=== PATIENT | female | born 1955 | race Caucasian/White ===

== ENCOUNTER → 2024-02-24 12:38 | Outpatient (REF) | payer OTHER, MEDICARE, SELFPAY | LOC: WDC 12:38 | PROVIDERS: ATTENDING PHYSICIAN Family Medicine | DX: Z12.31 Encounter for screening mammogram for malignant neoplasm of breast (principal) | CPT/HCPCS: 77063; 77067 ==

== ENCOUNTER → 2024-04-23 11:25 | Outpatient (REF) | payer OTHER, MEDICARE, SELFPAY | LOC: HWRAD 11:25 | PROVIDERS: ATTENDING PHYSICIAN Family Medicine | DX: R91.8 Other nonspecific abnormal finding of lung field (principal) | CPT/HCPCS: 71250 ==

== ENCOUNTER → 2025-04-04 10:53 | Outpatient (REF) | payer MEDICARE, OTHER, SELFPAY | LOC: WDC 10:53 | PROVIDERS: ATTENDING PHYSICIAN Family Medicine | DX: Z12.31 Encounter for screening mammogram for malignant neoplasm of breast (principal) | CPT/HCPCS: 77063; 77067 ==

== ENCOUNTER → 2025-05-03 11:07 | Outpatient (REF) | payer MEDICARE, OTHER, SELFPAY | LOC: HWRAD 11:07 | PROVIDERS: ATTENDING PHYSICIAN Family Medicine | DX: F17.210 Nicotine dependence, cigarettes, uncomplicated (principal) | CPT/HCPCS: 71271 ==

== ENCOUNTER → 2025-06-03 10:36 | Outpatient (REF) | payer MEDICARE, OTHER, SELFPAY | LOC: RAD 10:36 | PROVIDERS: ATTENDING PHYSICIAN Family Medicine | DX: M85.80 Other specified disorders of bone density and structure, unspecified site (principal); M81.0 Age-related osteoporosis without current pathological fracture | CPT/HCPCS: 77080 ==

== ENCOUNTER → 2025-06-11 10:33 | Outpatient (REF) | payer MEDICARE, OTHER, SELFPAY | LOC: HWRAD 10:33 | PROVIDERS: ATTENDING PHYSICIAN Internal Medicine Critical Care Medicine; FAMILY PHYSICIAN Family Medicine | DX: R91.1 Solitary pulmonary nodule (principal) | CPT/HCPCS: 71250 ==

== ENCOUNTER → 2025-06-24 12:32 | Outpatient (REF) | payer MEDICARE, OTHER, SELFPAY | LOC: HWRCS 12:32 | PROVIDERS: ATTENDING PHYSICIAN Nuclear Medicine Nuclear Cardiology; FAMILY PHYSICIAN Family Medicine | DX: R06.09 Other forms of dyspnea (principal); F17.200 Nicotine dependence, unspecified, uncomplicated; I25.10 Atherosclerotic heart disease of native coronary artery without angina pectoris; R73.01 Impaired fasting glucose; I34.1 Nonrheumatic mitral (valve) prolapse; I34.0 Nonrheumatic mitral (valve) insufficiency | CPT/HCPCS: 78452; 93017; A9500; J2785 ==

== ENCOUNTER → 2025-07-02 09:04 | Outpatient (REF) | payer MEDICARE, OTHER, SELFPAY | LOC: HWRCS 09:04 | PROVIDERS: ATTENDING PHYSICIAN Nuclear Medicine Nuclear Cardiology; FAMILY PHYSICIAN Family Medicine | DX: R06.09 Other forms of dyspnea (principal); F17.200 Nicotine dependence, unspecified, uncomplicated; I25.10 Atherosclerotic heart disease of native coronary artery without angina pectoris; R73.01 Impaired fasting glucose; I34.1 Nonrheumatic mitral (valve) prolapse; I34.0 Nonrheumatic mitral (valve) insufficiency | CPT/HCPCS: 93306 ==

== ENCOUNTER 2025-07-03 06:20 | Day surgery (SDC) | payer MEDICARE, OTHER, SELFPAY ==
[2025-06-28 13:51] VITALS: BMI 32.1
[2025-06-28 14:49] LABS: Hematocrit 43.5 % (37.0-47.0); Hemoglobin 14.4 g/dL (12.0-16.0); Mean Corp Hgb Conc. 33.1 g/dL (33.0-37.0); Mean Corpuscular Volume 94.0 fL (81.0-99.0); Platelet Count 123 10^3/uL (130-400); Red Cell Dist. Width 12.7 % (11.5-14.5)
[2025-06-28 14:56] LABS: INR 1.02; PT 13.7 Sec (11.4-14.6)
[2025-06-28 14:57] LABS: APTT 36.2 Sec (23.4-35.0)
[2025-07-03 10:57] VITALS: BMI 32.1
[2025-07-03 10:58] VITALS: BP 146/85
[2025-07-03 11:22] VITALS: BMI 31.6
[2025-07-03 13:15] VITALS: BP 146/85
[2025-07-03 13:16] VITALS: BP 126/71
[2025-07-03 13:48] VITALS: BP 108/67
[2025-07-03 14:07] VITALS: BP 106/60
== END 2025-07-04 14:27 | disposition home or self-care (01) ==
LOC: SDS 06:20
PROVIDERS: ATTENDING PHYSICIAN Internal Medicine; FAMILY PHYSICIAN Family Medicine; OTHER PHYSICIAN Internal Medicine Hematology & Oncology
DX: R91.1 Solitary pulmonary nodule (principal); F17.210 Nicotine dependence, cigarettes, uncomplicated; J44.9 Chronic obstructive pulmonary disease, unspecified; D69.3 Immune thrombocytopenic purpura; R09.82 Postnasal drip
CPT/HCPCS: 31629; 31623; 31624; 31627; 31654; 36415; 71045; 76000; 85027; 85610; 85730; 87015; 87070; 87102; 87116; 87205; 88112; 88172; 88173; 88305; 88333; 88334; 94640; C1887

== ENCOUNTER → 2025-09-20 10:37 | Outpatient (REF) | payer MEDICARE, OTHER, SELFPAY | LOC: REG 10:37 | PROVIDERS: ATTENDING PHYSICIAN Internal Medicine Infectious Disease; FAMILY PHYSICIAN Family Medicine | DX: A31.0 Pulmonary mycobacterial infection (principal) | CPT/HCPCS: 87116 ==